=== PATIENT | female | born 1965 | race Caucasian/White ===

== ENCOUNTER → 2022-07-07 17:28 | Outpatient (CLI) | payer BC, SELFPAY ==
--- NOTE | ~2022-07-07 | XR_ITS ---
Clinical Indication: Cough PA and lateral views of the chest: Comparison: None Findings: The lungs are clear, without evidence of focal consolidation or pleural effusion. Cardiome diastinal silhouette is within normal limits. Bones and soft tissues are unremarkable. Impression: Normal chest. Reviewed, dictated and finalized at location . Impression: Normal chest.
== END ==
PROVIDERS: PCP Physician Assistant; Visit Provider Physician Assistant
DX: R05.1 Acute cough (principal); J98.8 Other specified respiratory disorders
CPT/HCPCS: 71046